=== PATIENT | male | born 1990 | race Two or more races ===

== ENCOUNTER → 2020-02-17 11:31 | Outpatient (CLI) | payer BC, SELFPAY ==
[2020-02-17 18:09] LABS: Chlamydia Trachomatis by PCR Negative (Negative); Neisserai gonorrhoeae by PCR Negative (Negative); Probe Check PASS; Sample Adequacy Control PASS; Specimen Processing Control PASS
[2020-02-21 20:07] LABS: QNTFERON TB Mitogen Value > 10.00 IU/mL (.); QNTFERON TB Nil Value 0.18 IU/mL (.); QNTFERON TB1+ Ag Value 0.43 IU/mL (.)
[2020-02-21 20:35] LABS: QNTIFERON TB Positive Criteria Negative (Negative)
[2020-02-23 02:30] LABS: Rapid Plasmin Reagin (RPR) NONREACTIVE (NONREACTIVE)
== END ==
DX: Z11.3 Encounter for screening for infections with a predominantly sexual mode of transmission (principal)
CPT/HCPCS: 36415; 86480; 86592; 87491; 87591